=== PATIENT | male | born 2000 | race Two or more races ===

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

== ENCOUNTER 2021-10-10 22:32 | Emergency (ER) | payer MEDICAID ==
[~2021-10-10] VITALS: Ht 177.8 cm; Wt 77.0 kg
[~2021-10-10 22:32] MED LIST: ALBU18HF2 IH
[2021-10-10] MEDS ORDERED: SODIUM CHLORIDE 0.9% 1,000 ML IV ONE (22:45)
[2021-10-10 23:58] LABS: BASOPHILS % 0.6 % (0.0-2.0); EOSINOPHILS % 4.2 % (0.0-5.0); HEMOGLOBIN. 16.6 g/dL (14.0-18.0); LYMPHOCYTES % 29.9 % (20.0-50.0); MEAN CORPUSCULAR HEMOGLOBIN 30.1 pg (28.0-32.0); MEAN CORPUSCULAR VOLUME 85.4 fL (80.0-94.0); MEAN PLATELET VOLUME 8.5 fl (7.4-10.4); MONOCYTES % 7.3 % (2.0-8.0); PLATELET 252 x1000/uL (130-400); RED CELL DISTRIBUTION WIDTH 12.8 % (11.6-14.6)
[2021-10-11 00:01] LABS: CLARITY URINE CLEAR (CLEAR); COLOR URINE YELLOW (YELLOW); KETONES URINE 1+ (NEGATIVE); LEUKOCYTE ESTERASE URINE NEGATIVE (NEGATIVE); NITRITE URINE NEGATIVE (NEGATIVE); OCCULT BLOOD URINE NEGATIVE (NEGATIVE); PH URINE 6.5 (4.5-8.0); PROTEIN URINE NEGATIVE (NEGATIVE); SPECIFIC GRAVITY URINE 1.021 (1.005-1.030); UROBILINOGEN URINE 0.2 E.U./dL (0.2-1.0)
[2021-10-11 00:03] LABS: CHLORIDE 106 mEq/L (98-107)
[2021-10-11 00:09] LABS: ETHANOL BLOOD 121 mg/dL
[2021-10-11 00:30] LABS: *AMPHETAMINES SCREEN URINE NEGATIVE (NEGATIVE); *BARBITURATES SCREEN URINE NEGATIVE (NEGATIVE); *BENZODIAZEPINES SCREEN URINE NEGATIVE (NEGATIVE); *COCAINE SCREEN URINE NEGATIVE (NEGATIVE)
[2021-10-11 00:31] LABS: METHADONE URINE SCREEN NEGATIVE (NEGATIVE); OPIATES URINE SCREEN NEGATIVE (NEGATIVE); PHENCYCLIDINE URINE SCREEN NEGATIVE (NEGATIVE)
[2021-10-11 00:32] LABS: CANNABINOID URINE SCREEN PRESUMTIVE POSITIVE (NEGATIVE)
[2021-10-11] MEDS ORDERED: POTASSIUM CHLORIDE 20MEQ TABLET SR PO ONE (01:00)
[2021-10-11] MEDS ORDERED: POTASSIUM CHLORIDE INJ 40 MEQ in DEXT 5% WATER 500 ML IV ONE (01:00)
[2021-10-11 04:17] LABS: CHLORIDE 110 mEq/L (98-107)
[2021-10-11] MEDS ORDERED: FLUO10TA3 MT (10:13)
[2021-10-11 11:14] VITALS: BP 115/75
== END 2021-10-11 11:15 | disposition home or self-care (01) ==
LOC: ER 22:32
DX: T39.312A Poisoning by propionic acid derivatives, intentional self-harm, initial encounter (principal); Z86.19 Personal history of other infectious and parasitic diseases; Y92.018 Other place in single-family (private) house as the place of occurrence of the external cause
CPT/HCPCS: 36415; 80053; 80305; 80307; 80320; 80329; 81003; 85025; 93005; 96361; 96365; 99285; J3480; J7030; J7060; G0480

== ENCOUNTER 2023-06-26 10:14 | Emergency (ER) | payer BC, MEDICAID ==
[~2023-06-26] VITALS: Ht 172.7 cm; Wt 80.0 kg
[~2023-06-26 10:14] MED LIST changes: +FLUO10TA53 MT
[2023-06-26] MEDS ORDERED: ONDANSETRON 4MG ODT PO ONE (11:00)
[2023-06-26] MEDS ORDERED: MORPHINE SULFATE 10 MG/ML CPJ IM ONE (11:00)
[2023-06-26] MEDS ORDERED: ONDANSETRON 4MG ODT PO NR (11:15)
[2023-06-26] MEDS ORDERED: MORPHINE SULFATE 10 MG/ML CPJ IM NR (11:15)
[2023-06-26] MEDS ORDERED: MORPHINE SULFATE 4 MG/ML CPJ (NOT FOR IM USE) IV NR (12:30)
[2023-06-26] MEDS ORDERED: ONDANSETRON HCL 4MG/2ML INJ IV NR (12:30)
[2023-06-26] MEDS ORDERED: PROPOFOL 200MG/20ML VIAL IV NR (12:45)
[2023-06-26 12:49] VITALS: O2SAT 99
[2023-06-26] MEDS ORDERED: LIDOCAINE HCL 1% 20ML VIAL (Pyxis) INJ INFIL ONE (13:15)
[2023-06-26 15:09] VITALS: BP 125/68; PULSE 95; RESP 22; TEMP 98.4
== END 2023-06-26 15:29 | disposition home or self-care (01) ==
LOC: ER 10:14
DX: S40.812A Abrasion of left upper arm, initial encounter (principal); S40.811A Abrasion of right upper arm, initial encounter; S82.892A Other fracture of left lower leg, initial encounter for closed fracture; S09.90XA Unspecified injury of head, initial encounter; F32.A Depression, unspecified; Y08.89XA Assault by other specified means, initial encounter; Y93.89 Activity, other specified; Y92.89 Other specified places as the place of occurrence of the external cause; Y99.8 Other external cause status
CPT/HCPCS: 73560; 73610; 70450; 70486; 72125; 27840; 96372; 96374; 99152; 99285; Q0162; J3490; J2405; J2704; J2270 ×2; Z7610 ×6

== ENCOUNTER 2024-02-03 10:15 | Emergency (ER) | payer BC, MEDICAID ==
[~2024-02-03] VITALS: Ht 180.3 cm; Wt 90.7 kg
[2024-02-03 10:23] VITALS: O2SAT 98
[2024-02-03] MEDS: IBUPROFEN 800MG TABLET PO ONE (11:06)
[2024-02-03] MEDS ORDERED: IBUP-2030 MT (11:22)
[2024-02-03 11:51] VITALS: BP 113/77; PULSE 60; RESP 18; TEMP 98.3
== END 2024-02-03 11:53 | disposition home or self-care (01) ==
LOC: ER 10:23
DX: M25.512 Pain in left shoulder (principal); J45.909 Unspecified asthma, uncomplicated
CPT/HCPCS: 73030; 99283

== ENCOUNTER 2024-05-23 12:45 | Emergency (ER) | payer BC ==
[~2024-05-23] VITALS: Ht 180.3 cm; Wt 91.0 kg
[~2024-05-23 12:45] MED LIST changes: +FLUO10TA44 MT; -FLUO10TA53 MT; +IBUP-2030 MT
[2024-05-23 12:57] VITALS: TEMP 98; O2SAT 100
[2024-05-23] MEDS ORDERED: ACETAMINOPHEN 325MG TABLET PO ONE (14:45)
[2024-05-23] MEDS: ACETAMINOPHEN 325MG TABLET PO NR (17:26)
[2024-05-23 17:29] VITALS: BP 134/79; PULSE 81; RESP 16; O2SAT 98
== END 2024-05-23 17:30 | disposition home or self-care (01) ==
LOC: ER 13:03
DX: S06.0X0A Concussion without loss of consciousness, initial encounter (principal); F32.A Depression, unspecified; J45.909 Unspecified asthma, uncomplicated; Z98.890 Other specified postprocedural states; V99.XXXA Unspecified transport accident, initial encounter; Y93.89 Activity, other specified; Y92.89 Other specified places as the place of occurrence of the external cause; Y99.8 Other external cause status
CPT/HCPCS: 99284